=== PATIENT | female | born 1985 | race Caucasian/White ===

== ENCOUNTER 2021-08-26 03:23 | Observation (INO) ==
[2021-08-26] MEDS ORDERED: 0.9 % Sodium Chloride 1,000 ML IV ONE (03:28)
[2021-08-26] MEDS ORDERED: Ondansetron 4 MG/2 ML VIAL IVP ONE (03:28)
[2021-08-26 03:53] LABS: Basophils % 0.2 %; Bilirubin,Urine Negative (Negative); Blood,Urine Trace-intact (Negative); Clarity,Urine Slightly Cloudy (Clear); Eosinophils % 0.1 %; Glucose,Urine (UA) Normal (Normal); Hematocrit 37.5 % (35.3-44.9); Immature Granulocytes % 0.3 % (0-4); Ketones,Urine 80 mg/dL (Negative); Leukocyte Esterase,Urine Negative (Negative); Lymphocytes # 0.9 K/mcL (0.6-4.6); Mean Corpuscular Hemoglobin 27.5 pg (28.0-33.3); Mean Corpuscular Volume 85.8 fL (83.0-100.0); Mean Platelet Volume 9.3 fL (9.4-12.4); Monocytes # 0.2 K/mcL (0.0-1.3); Monocytes % 1.4 %; Neutrophils # 10.6 K/mcL (1.6-8.9); Nitrite,Urine Negative (Negative); Platelet Count 302 K/mcL (140-400); Protein,Urine 100 mg/dL (Neg-Trace); Red Blood Count 4.37 M/mcL (3.82-4.97); Red Cell Distribution Width 21.3 % (11.5-14.5); Specific Gravity,Urine >= 1.030 (1.010-1.025); Urobilinogen,Urine Normal (Normal); White Blood Count 11.8 K/mcL (4.3-11.1)
[2021-08-26 03:54] LABS: Color,Urine Yellow (Yellow)
[2021-08-26 03:57] LABS: RBC,Urine 0-3 per hpf (0-3); Squamous Epithelial Cell,Urine Few per hpf (None-Few)
[2021-08-26 03:58] LABS: Amorphous Sediment,Urine Few per hpf (None-Few)
[2021-08-26 04:09] LABS: Alanine Aminotransferase 15 Units/L (7-52); Albumin 4.4 g/dL (3.5-5.7); Albumin/Globulin Ratio 1.3 (1.1-2.2); Alkaline Phosphatase 43 Units/L (34-104); Amylase 45 Units/L (29-103); Aspartate Amino Transferase 13 Units/L (13-39); BUN/Creatinine Ratio 10 (6-26); Bilirubin,Total 0.5 mg/dL (0.3-1.0); Blood Urea Nitrogen 7 mg/dL (6-20); Calcium 10.6 mg/dL (8.6-10.3); Carbon Dioxide 20 mEq/L (23-29); Chloride 102 mEq/L (98-107); Globulin 3.4 g/dL (2.4-3.5); Glucose 117 mg/dL (70-105); Lipase 31 Units/L (11-82); Osmolality,Calculated 277 (280-300); Potassium 3.8 mEq/L (3.5-5.1); Sodium 134 mEq/L (136-145); Total Protein 7.8 g/dL (6.4-8.9); eGFR For African Americans > 60 (> 60); eGFR For Non-African Americans > 60 (> 60)
[2021-08-26] MEDS ORDERED: Ondansetron 4 MG/2 ML VIAL IVP PRN (04:48)
[2021-08-26] MEDS ORDERED: Naloxone 0.4 MG/ML INJ IVP PRN (04:48)
[2021-08-26] MEDS: 0.9 % Sodium Chloride 1,000 ML IVC SCH ×2 (05:00→16:04)
[2021-08-26] MEDS: Ondansetron 4 MG/2 ML VIAL IVP PRN ×3 (09:39→21:16)
[2021-08-26] MEDS: Metoclopramide 10 MG/2 ML VIAL IVP PRN ×2 (12:02→20:35)
[2021-08-26] MEDS: Famotidine 20 MG/2 ML VIAL IVP SCH ×2 (12:03→17:59)
[2021-08-26] MEDS ORDERED: 0.9 % Sodium Chloride 1,000 ML IVC SCH (16:34)
[2021-08-27] MEDS: Metoclopramide 10 MG/2 ML VIAL IVP PRN ×2 (02:18→08:20)
[2021-08-27] MEDS: Ondansetron 4 MG/2 ML VIAL IVP PRN (06:36)
[2021-08-27] MEDS: Famotidine 20 MG/2 ML VIAL IVP SCH (06:37)
[2021-08-27 06:45] VITALS: BP 116/78; PULSE 65; RESP 18; TEMP 98.6; O2SAT 98
[2021-08-27 07:21] LABS: Hematocrit 32.9 % (35.3-44.9); Hemoglobin 10.5 g/dL (11.5-15.4); Mean Corpuscular HGB Conc 31.9 g/dL (31.6-35.5); Mean Corpuscular Hemoglobin 27.6 pg (28.0-33.3); Mean Corpuscular Volume 86.4 fL (83.0-100.0); Mean Platelet Volume 9.7 fL (9.4-12.4); Platelet Count 271 K/mcL (140-400); Red Blood Count 3.81 M/mcL (3.82-4.97); White Blood Count 9.7 K/mcL (4.3-11.1)
[2021-08-27 07:57] LABS: Alanine Aminotransferase 11 Units/L (7-52); Albumin 3.7 g/dL (3.5-5.7); Albumin/Globulin Ratio 1.4 (1.1-2.2); Alkaline Phosphatase 35 Units/L (34-104); Aspartate Amino Transferase 11 Units/L (13-39); BUN/Creatinine Ratio 9 (6-26); Bilirubin,Total 0.5 mg/dL (0.3-1.0); Blood Urea Nitrogen 5 mg/dL (6-20); Calcium 8.9 mg/dL (8.6-10.3); Carbon Dioxide 20 mEq/L (23-29); Chloride 106 mEq/L (98-107); Globulin 2.6 g/dL (2.4-3.5); Glucose 91 mg/dL (70-105); Magnesium 1.9 mg/dL (1.6-2.6); Osmolality,Calculated 277 (280-300); Potassium 3.2 mEq/L (3.5-5.1); Sodium 135 mEq/L (136-145); Total Protein 6.3 g/dL (6.4-8.9); eGFR For African Americans > 60 (> 60); eGFR For Non-African Americans > 60 (> 60)
[2021-08-27 14:39] LABS: Estimated Average Glucose 103 mg/dl; Hemoglobin A1C 5.2 %
== END 2021-08-27 10:47 | disposition home or self-care (01) ==
LOC: EMEROOGRE 03:23 → INPGRE 03:23
PROVIDERS: ADMIT Internal Medicine; ATTEND Family Medicine